=== PATIENT | male | born 1960 | race Caucasian/White ===

== ENCOUNTER → 2017-10-19 | Outpatient (CLI) | payer BC, OTHER ==
[~2017-10-19] MED LIST: ADULT LOW DOSE81 MG PO; ADVIL100 M2 PO; CINNAMON PO; FISH OIL 1,0001 EAC5 PO; MULTIVITAMINS PO; NAPROSYN500 MG PO; QUINAPRIL 20 MG20 MG PO; ZOCOR 20 MG TAB20 M1 PO
--- NOTE | ~2017-10-19 | EKG ---
[address] [address] ELECTROCARDIOGRAM REPORT Name: PAULA ROBERTSON Room #: REG [facility]#: [id number] Admission: 10/19/17 Attend Phys: Luciano Morgan MD, Discharge: Date of : 62 Report #: [id number] THIS REPORT FOR: //name// [facility] Test Date: 2017-10-19 Test Time: 11:11:49 Pat Name: PAULA ROBERTSON Department: Room: Gender: M [place]: Paddy BAIG : 1960 Requested By: Luciano Morgan Order Number: [id number] MD: Salo Jasmine Measurements Intervals [place] Rate: 65 P: 14 VA: 138 QRS: -19 QRSD: 99 T: -7 QT: 393 QTc: 409 Interpretive Statements Sinus rhythm Borderline left axis deviation Borderline T abnormalities, inferior leads Compared to ECG 03/29/2011 13:22:18 No significant change was found Electronically Signed On 10-19-2017 12:54:53 CDT by Salo Jasmine [email or web address] <ELECTRONICALLY SIGNED> By: Salo Jasmine MD, [facility] 10/19/17 1254 1111 1111 Salo Jasmine MD, [facility] /EPI
[2017-10-19 10:47] LABS: ABSOLUTE NEUTROPHILS 3.3 thou/uL (1.4-8.2); BASOPHILS 0.8 % (0.0-2.0); EOSINOPHILS 1.1 % (0.0-3.0); HEMATOCRIT 42.9 % (42.0-52.0); HEMOGLOBIN 15.2 gm/dL (14.0-18.0); LYMPHOCYTES 35.7 % (24.0-44.0); MCH 31.7 pg (26.0-34.0); MCHC 35.4 g/dL (28.0-37.0); MCV 89.5 fL (80.0-100.0); PLATELET COUNT 160 thou/uL (150-400); POLYS 55.4 % (36.0-66.0); RDW 13.3 % (10.5-14.5)
[2017-10-19 11:07] LABS: ALBUMIN 4.1 g/dL (3.4-5.0); CALCIUM 9.6 mg/dL (8.5-10.1); POTASSIUM 4.4 mmol/L (3.5-5.1); TOTAL BILIRUBIN 0.3 mg/dL (<0.1-1.0); TOTAL PROTEIN 7.5 g/dL (6.4-8.2)
== END ==
LOC: RAD 06:58
PROVIDERS: Surgery
DX: Z01.818 Encounter for other preprocedural examination (principal); M25.78 Osteophyte, vertebrae

== ENCOUNTER 2017-11-07 05:26 | Inpatient (IN) | payer BC, OTHER ==
[2017-11-07] VITALS (7 sets, daily range): BP systolic 134–172; BP diastolic 75–97
[~2017-11-07] VITALS: Ht 177.8 cm; Wt 106.1 kg
--- NOTE | ~2017-11-07 | O ---
[address] [address] OPERATIVE REPORT Name: PAULA ROBERTSON Room #: 410-P [facility] ..#: [id number] Admission: 11/07/17 Attend Phys: Luciano Morgan MD, Discharge: 11/08/17 Date of : 62 Report #: [id number] THIS REPORT FOR: //name// CC: FAM unknown Luciano Morgan DATE OF SERVICE: 11/07/2017 PREOPERATIVE DIAGNOSES: 1. Morbid obesity with a BMI of 35.08. 2. Hypertension. 3. Hypercholesterolemia. 4. Diabetes mellitus. 5. Obstructive sleep apnea that is CPAP dependent. 6. Lumbago. 7. Chronic fatigue. 8. Bilateral knee arthralgia. 9. Mild gastroesophageal reflux disease. POSTOPERATIVE DIAGNOSES: 1. Morbid obesity with a BMI of 35.08. 2. Hypertension. 3. Hypercholesterolemia. 4. Diabetes mellitus. 5. Obstructive sleep apnea that is CPAP dependent. 6. Lumbago. 7. Chronic fatigue. 8. Bilateral knee arthralgia. 9. Mild gastroesophageal reflux disease. PROCEDURES PERFORMED: 1. Laparoscopic sleeve gastrectomy. 2. A thorough esophagogastroduodenoscopy (EGD). SURGEON: Luciano Morgan MD MANAGER LPN: Galo Cruz MD ANESTHESIA: General endotracheal anesthesia. ESTIMATED BLOOD LOSS: Minimal (less than 5 mL). COMPLICATIONS: None appreciated. SPECIMENS: Gastric sleeve resection specimen to pathology. [address] [address] OPERATIVE REPORT Name: PAULA ROBERTSON Room #: 410-P [facility]#: [id number] Admission: 11/07/17 Attend Phys: Luciano Morgan MD, Discharge: 11/08/17 Date of : 62 Report #: [id number] INDICATIONS: The patient is a 57-year-old morbidly obese male who has been seen for his desire for weight loss surgery as he has had a very long history of obesity and has tried numerous weight loss attempts including physician-directed weight loss attempts, all to no avail. The patient has been seen by his primary care physician and a electric brain wave equipment mechanic and a psychologist who have all indicated it is necessary for long-term weight loss as well as resolution of his comorbid conditions. The patient also underwent aggressive diet and exercise attempts under my direction with no substantial weight loss thus far and after receiving prior authorization to proceed, indication was for laparoscopic sleeve gastrectomy today. DESCRIPTION OF PROCEDURE: After explaining the risks, benefits and alternatives of the procedure with the patient in detail in the preoperative holding area and obtaining written consent, the patient was brought to the operating room and placed supine on the operating room table. After conducting a thorough timeout procedure verifying correct patient and procedure, the patient was given general endotracheal anesthesia. Once adequate anesthesia was obtained, his SCDs were hooked up to pneumatic compression device and he was given a preoperative dose of antibiotics in line with the SCIP protocol. The patient's abdomen was prepped and draped in standard surgical sterile fashion. I began the procedure by performing a thorough EGD. The The [employer] upper endoscope was used to intubate the oropharynx. This was traversed down the straight esophagus into the gastric lumen where the pylorus was identified and intubated. The scope was advanced to the second portion of duodenum where slow careful withdrawal of the scope showed no evidence of duodenitis, gastritis, esophagitis, mass lesions or ulcerations. A retroflexion view of the scope within the gastric lumen showed no evidence of a hiatal hernia. The scope was straightened out with its tip at the level of pylorus where the stomach was desufflated and the scope was taped into position. I then sterilely scrubbed and entered the operative portion of the procedure. A 5 mL of 0.5% Marcaine with epinephrine were used to anesthetize the skin in the right mid abdomen, 5 cm cephalad to the umbilicus and 5 cm to the patient's right. A #15 bladed scalpel was used to create a 1.5 cm skin incision at this location. A 15 mm Visiport was placed over 0 degree 5 mm laparoscope and was introduced through this incision site. Once intra-abdominal placement was verified visually, the obturator for the trocar and laparoscope were both removed and the abdomen was insufflated to 15 mmHg using carbon dioxide gas. The laparoscope was changed to a 5-mm 30-degree laparoscope, which was reintroduced through this trocar. The entire abdomen was evaluated to ensure no injury upon entry. I now placed three additional 5 mm working trocars in the left mid abdomen. The first was placed 3 cm cephalad to the umbilicus and 2 cm to the patient's left, the next one was placed 5 cm lateral to that, and the final one was placed in the extreme left lateral flank. All 3 additional 5 mm ports were placed under direct vision after anesthetizing the skin at each location with 5 mL of 0.5% Marcaine with epinephrine and I created small skin nicks using a #15 bladed scalpel. Laparoscope was then removed and placed in the 5 mm trocar just to the left of the patient's umbilicus and he was placed in [address] [address] OPERATIVE REPORT Name: PAULA ROBERTSON Room #: 410-P [facility]#: [id number] Admission: 11/07/17 Attend Phys: Luciano Morgan MD, Discharge: 11/08/17 Date of : 62 Report #: [id number] steep reverse Trendelenburg position. I now placed a Andra liver retractor in subxiphoid location by anesthetizing the skin at that location with 5 mL of 0.5% Marcaine with epinephrine and I created a small skin mabel using a #15 bladed scalpel. The Andra retractor was positioned through this defect, positioned up under the left lobe of the liver and was held up against the posterior aspect of the anterior abdominal wall. This was then fixed into position using the iron internal communications manager device to stabilize it. We had complete access to the stomach and hiatal regions and again found no evidence of a hiatal hernia. I now started my dissection after identifying our landmarks. The vein of Levine was identified overlying the pylorus. I measured 5 cm proximal to this location and began taking down the short gastric arteries from this location all the way up the greater curvature using Harmonic scalpel for hemostasis. Once I arrived upon the base of the left bolivar, the stomach was reflected anteriorly and all posterior gastric attachments were taken down, ensuring that we were well away from the posterior aspect of the stomach as well as the anterior aspect of the pancreas so as to prevent injury from thermal spread. Now that the stomach was completely mobilized, the OG tube was removed and the EGD scope was positioned to run along the lesser curvature of the stomach. I now started the stapling portion of the procedure. The [place] 60 mm stapler with a black load utilizing Mendoza's Misti-Strip buttressing material placed over it was entered into the abdomen through the 15 mm trocar. This first firing started at the location 4 cm proximal to the pylorus and fired right along, but not extremely tight to the scope, so as not to cause stricturing, especially at the incisura. An additional firing of another black load again utilizing Mendoza's Misti-Strip buttressing material was carried out following the scope as a 34-Mongolian bougie. Five firings of green loads all utilizing Mendoza's Misti-Strip buttressing material was carried out following the scope as a bougie all the way up to the left bolivar until the stomach was completely transected. This left an excellently oriented sleeve of gastric remnant with no twisting and complete hemostasis. There was one area of gentle ooze along the proximal staple line and as such, a laparoscopic clip tree surgeon was used to maintain complete hemostasis at this juncture. The resection specimen was placed in the right upper quadrant for future retrieval and 14 mL of Tisseel on the ORDISSIMOspray device were now used to coat the entirety of the staple line with fibrin glue. While this was drying, this resection specimen was removed out of the abdomen through the 15 mm trocar incision under direct vision and that incision was closed using 0 PDS suture on the Vikram-Yadiel suture passer device. That was tied down under direct vision to ensure I did not catch a loop of bowel or omentum in the suture repair. Once the Tisseel was dry, normal saline was instilled into the upper abdomen. The EGD scope was activated and slowly withdrawn with gentle insufflation of the sleeved stomach. We were able to evaluate the staple line from inside showing no evidence of bleeding down the lumen and gentle insufflation of the stomach held under the normal saline in the abdomen showed no bubbling thereby signifying a negative leak test. The scope was used to desufflate the stomach, was removed via the oropharynx, passed off the field and I sterilely enter the operative field once again. All normal saline was [facility] [address] [place] [address] OPERATIVE REPORT Name: PAULA ROBERTSON Room #: 410-P [facility]#: [id number] Admission: 11/07/17 Attend Phys: Luciano Morgan MD, Discharge: 11/08/17 Date of : 62 Report #: [id number] suctioned out and the irrigant ran clear throughout. I now proceeded to remove the Andra liver retractor and the liver was healthy and uninjured. The abdomen was fully desufflated. All remaining trocars were removed under direct vision. A 4-0 Monocryl was used in a standard subcuticular fashion for all skin incisions and Dermabond glue was applied to all skin wounds. The corner of the resection specimen was trimmed away and normal saline was passively instilled into the resection specimen yielding 1500 mL in the resection specimen itself. At the end of the procedure, all instrument, needle and sponge counts were correct. The patient tolerated the procedure without incident, was awakened in the operating room and transitioned to the recovery room in stable condition with no apparent complications. <ELECTRONICALLY SIGNED> By: Luciano Morgan MD, FACS 11/09/17 0738 1723 1757 Luciano Morgan MD, FACS /nt
[~2017-11-07 05:26] MED LIST changes: +AMARYL4 MG PO; +CELEXA40 MG PO; +CO Q-10100 M1 PO; +FENOFIBRATE160 MG PO; +GLUCOPHAGE1000 MG PO; +JANUVIA100 MG PO; +LIPITOR80 MG PO; +SYNTHROID175 MCG PO; +ZYRTEC10 M5 PO
[2017-11-08 00:22] VITALS: BP 146/79
[2017-11-08 04:52] VITALS: BP 166/89
[2017-11-08 05:21] LABS: HEMATOCRIT 39.4 % (42.0-52.0); HEMOGLOBIN 13.6 gm/dL (14.0-18.0); MCH 31.2 pg (26.0-34.0); MCHC 34.4 g/dL (28.0-37.0); MCV 90.5 fL (80.0-100.0); RBC 4.35 mil/uL (4.50-6.00); RDW 13.4 % (10.5-14.5); WBC 8.8 thou/uL (4.0-11.0)
[2017-11-08 05:35] LABS: CALCIUM 8.7 mg/dL (8.5-10.1); CREATININE 0.9 mg/dL (0.7-1.3); POTASSIUM 3.6 mmol/L (3.5-5.1)
[2017-11-08 07:53] VITALS: BP 154/78
[2017-11-08] MEDS ORDERED: HYDROCODONE-ACE15 ML PO (11:03)
[2017-11-08 12:08] VITALS: BP 154/78
== END 2017-11-08 13:35 | disposition home or self-care (01) | DRG 621 ==
LOC: TBA 05:26 → PRE 09:38 → 4N 15:41 → ENTRNSPT 11-08 13:44 → EDTRNSPTSTS 11-08 13:48
PROVIDERS: Surgery
PROC: 0DB64Z3 Excision of Stomach, Percutaneous Endoscopic Approach, Vertical (ICD-10-PCS; principal; 2017-11-07)
PROC: 0DJ08ZZ Inspection of Upper Intestinal Tract, Via Natural or Artificial Opening Endoscopic (ICD-10-PCS; principal; 2017-11-07)
DX: E66.01 Morbid (severe) obesity due to excess calories (principal); I10 Essential (primary) hypertension; E78.00 Pure hypercholesterolemia, unspecified; E11.9 Type 2 diabetes mellitus without complications; G47.33 Obstructive sleep apnea (adult) (pediatric); M54.5 Low back pain; M25.562 Pain in left knee; M25.561 Pain in right knee; K21.9 Gastro-esophageal reflux disease without esophagitis; F32.9 Major depressive disorder, single episode, unspecified; E03.9 Hypothyroidism, unspecified; Z68.35 Body mass index [BMI] 35.0-35.9, adult; Z79.899 Other long term (current) drug therapy
CPT/HCPCS: 10790; 50010; 50101; 50222; 50249; 50386; 50555; 50739; 50740; 50962; 51436; 51437; 52182; 52265; 53307; 53311; 54022; 54118; 55245; 56462; 56525; 56526; 57092; 62110; 62900; 64029; 70005